=== PATIENT | male | born 1965 | race Asian ===

== ENCOUNTER → 2018-06-07 | Outpatient (CLI) | payer OTHER ==
[2018-06-07 18:14] LABS: HEMOGLOBIN A1C 5.5 % (4.5-6.2)
[2018-06-07 18:39] LABS: CHOL/HDL RATIO 2.1 (4.2-7.3); THYROID STIMULATING HORMONE 1.06 uIU/mL (0.36-3.74)
== END | disposition home or self-care (01) ==
LOC: LABMN 17:27
PROVIDERS: ATTEND Internal Medicine
DX: S13.9XXA Sprain of joints and ligaments of unspecified parts of neck, initial encounter (principal); E78.2 Mixed hyperlipidemia; R73.09 Other abnormal glucose; X58.XXXA Exposure to other specified factors, initial encounter; Y93.89 Activity, other specified; Y92.89 Other specified places as the place of occurrence of the external cause; Y99.8 Other external cause status
CPT/HCPCS: 83036; 84443; 85651